=== PATIENT | female | born 1995 | race African-American/Black ===

== ENCOUNTER 2022-07-08 21:09 | Inpatient (IN) ==
[2022-07-08] MEDS ORDERED: OXYTOCIN 30 UNITS/500 ML BAG IV PRN ×2 (22:09)
[2022-07-08] MEDS ORDERED: LIDOCAINE 1% LOCAL 20 ML VIAL INFIL PRN (22:09)
--- NOTE | 2022-07-08 22:18 | History & Physical Report ---
Date of Service July 08, 2022 Assessment & Plan (1) SROM (spontaneous rupture of membranes): Plan: 27 yo G1 at 39 6/7 wga presents w/ SROM VSS Fetus cat 1 SROM - will recheck in few hours to see if making change, will start pit if not GBS neg epidural prn will be out of covid positive window at midnight History of Present Illness Chief Complaint: contractions, LOF Primary Care Provider: NO PCP 27 yo G1 at 39 6/7 wga presents with ctx q5 increasing in freq and intensity as well as a gush of fluid around 5pm. +FM; had some light pink but no bright red VB PNI: ? arrhythmia, ok for delivery here SMA carrier, fob neg ASCUS/HPV+ pap, normal colpo- needs pp pap Past FAMILY CENTER[facility] SPECIALIST Hx: G1 regular cycles hx chlamydia last year pap as above Allergies Allergy/AdvReac Type Severity Reaction Status Date / Time No Known Allergies Allergy Verified 07/07/22 12:21 Home Medications Medication Instructions Recorded Confirmed Type vitamins no.162-iron 1 tab PO DAILY #30 tabs 04/23/22 07/08/22 Rx gluconate 12 mg-folic acid 1 mg tablet Patient History Medical History (Updated 07/08/22 @ 22:17 by Marline Lau MD) Abnormal Pap smear of cervix History of varicella vaccination Hx of chlamydia infection prior to Hx of human papillomavirus infection Hx of ovarian cyst Surgical History No pertinent past surgical history Family History Grandmother (Maternal) Hypertension Denies family history of Ovarian cancer Breast cancer Lung cancer Colorectal cancer Social History (Updated 07/07/22 @ 12:21 by Loren Kathleen, RN) Smoking Status: Never smoker Hx Alcohol Use: No Hx Substance Use: No Preferred Language: Occitan Communication Ability: Effective Visual Impairment: No Limitations Hearing Ability: Normal Emergency Detail Driver Required: No Beliefs That Will Affect Care: None marital status: Single marital status details: NAT Montes Jr. [phone] Current Living Situation: Alone Current Living Situation Comment: 1 dog current occupational status: unemployed current occupation: [employer] Other Information That Helps Us Care for You: No Feels Safe at Home: Yes Safety Concerns: Feels Safe At This Time Assistive Devices: None Physical Exam Genitourinary: OB Exam Abdomen: + vertex (confirmed by bsus) and + estimated weight (7-8) Manual OB Exam: + cervical dilation 2 cm, + cervical effacement 70%, + station -2 and + amniotic fluid (+pooling, nitrazine, ferning) OB Exam Monitor Tracing: + external FHT monitor used, + external uterine monitor used (q5-6) and + category I (125/mod/+accel/-decel) Results & Data ([facility]) Vital Signs (Past 12 Hours) Vital Signs Temp Pulse Resp BP 07/08/22 21:28 98.1 F 83 18 128/72 07/08/22 21:25 98.1 F 83 18 128/72 Laboratory Results OB Labs: Blood Type O Positive 11/29/21 Antibody Screen NEGATIVE 11/29/21 Hemoglobin 10.4 g/dl (12.0-16.0) L 05/01/22 Hematocrit 31.6 % (34.1-44.9) L 05/01/22 Mean Corpuscular Volume 94.8 fL (80.0-100.0) 02/15/22 Platelet Count 232 K/uL (130-400) 02/15/22 Rubella IgG Antibody Immune (Immune) 11/29/21 Rapid Plasma Reagin Nonreactive (Nonreactive) 06/06/22 Hepatitis B Surface Antigen. NON-REACTIVE (NON-REACTIVE) 06/06/22 Hepatitis C Antibody Neg (Neg) 04/14/21 Hepatitis C Antibody (EIA) NON-REACTIVE (NON-REACTIVE) 06/06/22 HIV (1&2) Ab and P24 Ag, 4th Gener Neg (Neg) 04/14/21 HIV (1&2) Ag and Ab Confirmation NON-REACTIVE (NON-REACTIVE) 06/06/22 Glucose 1 Hour 50 gm Load 147 mg/dl (70-130) H 01/24/22 OB Optional Labs: Chlamydia trachomatis RNA Not Detected (NotDetected) 06/06/22 Neisseria gonorrhoeae RNA Not Detected (NotDetected) 06/06/22 Labs Reviewed: cf-negative--mln sma-postive carrier--mln cfdna-low risk--mln 2hrgtt wnl, 2nd trimester GBS neg Diagnostic Findings post plac Coding Level of Care Code None Diagnoses SROM (spontaneous rupture of membranes)
[2022-07-08] MEDS: LACTATED RINGER'S 1,000 ML IV PRN (22:40)
[2022-07-08] MEDS ORDERED: ePHEDrine sulfate 50 MG/ML AMP ONE (22:50)
[2022-07-08] MEDS ORDERED: fentaNYL citrate 100 MCG/2 ML VIAL ONE (22:51)
[2022-07-08] MEDS ORDERED: BUPIVACAINE 0.25% 30 ML VIAL ONE (22:51)
[2022-07-08] MEDS ORDERED: fentaNYL 2MCG/ML ROPIVACAINE 1.25MG/ML 100 ML BAG EPI ONE (22:51)
[2022-07-08] MEDS ORDERED: LIDOCAINE 2%/EPINEPHRINE 1:200,000 20 ML SDV ONE (22:51)
[2022-07-08] MEDS ORDERED: SODIUM CHLORIDE 0.9% INJ 10 ML VIAL ONE (22:51)
[2022-07-08 22:53] LABS: Hematocrit (blood only) 31.9 % (34.1-44.9); Hemoglobin 10.7 g/dl (12.0-16.0); Mean Corpuscular Hemoglobin 30.1 pg (25.0-34.0); Mean Corpuscular Hgb Conc 33.5 g/dL (32.0-36.0); Mean Corpuscular Volume 89.9 fL (80.0-100.0); Mean Platelet Volume 11.2 fL (9.4-12.3); Platelet Count 228 K/uL (130-400); RDW Coefficient of Variation 14.1 % (11.5-14.5); RDW Standard Deviation 46.5 fL (36.4-46.3); Red Blood Count 3.55 M/uL (3.93-5.22); White Blood Count 10.15 K/ul (4.8-10.8)
[2022-07-08] MEDS ORDERED: NALOXONE HCL 1 MG in SODIUM CHLORIDE 0.9% 1000ML 1,000 ML IV PRN (23:24)
[2022-07-08] MEDS ORDERED: NALOXONE HCL 0.4 MG/1 ML VIAL/CARP IV PRN (23:24)
[2022-07-08] MEDS ORDERED: ONDANSETRON INJ 2 MG/ML 2 ML VIAL IV PRN (23:24)
[2022-07-08] MEDS ORDERED: ePHEDrine sulfate 50 MG/ML AMP IV PRN (23:24)
[2022-07-08] MEDS ORDERED: diphenhydrAMINE 50 MG/ML VIAL IV PRN (23:24)
[2022-07-08] MEDS ORDERED: NALBUPHINE HCL INJ 10 MG/ML AMP IV PRN (23:24)
[2022-07-08] MEDS ORDERED: fentaNYL 2MCG/ML ROPIVACAINE 1.25MG/ML 100 ML BAG EPI PRN (23:24)
--- NOTE | 2022-07-08 23:24 | Anesthesiology Consultation ---
Date of Service July 08, 2022 Assessment & Plan ASA ASA2 Proposed Anesthesia Anesthesia Type: Labor Epidural Risk / Benefits Reviewed With: PT / POA / Parent / Guardian, Accepts Plan and Informed Consent Obtained History Height/Weight Height: 5 ft 5 in Weight: 90.718 kg Allergies Allergy/AdvReac Type Severity Reaction Status Date / Time No Known Allergies Allergy Verified 07/07/22 12:21 Medications Home Medications Medication Instructions Recorded Confirmed Last Taken vitamins no.162-iron 1 tab PO DAILY #30 tabs 04/23/22 07/08/22 07/08/22 gluconate 12 mg-folic acid 1 mg tablet Active Medications Generic Name Dose Route Start Last Admin Trade Name Freq PRN Reason Stop Dose Admin Lactated Ringer's 1,000 mls @ 125 mls/hr 07/08/22 22:09 07/09/22 00:09 Lr IV 07/10/22 22:08 125 mls/hr .Q8H PRN Administration L&D Protocol Protocol Past Medical History Medical History Abnormal Pap smear of cervix History of varicella vaccination Hx of chlamydia infection prior to Hx of human papillomavirus infection Hx of ovarian cyst Exercise / Class Metabolic Activity II 4-5 Yardwork/Stairs/Walk up hill Past Family History Family History Grandmother (Maternal) Hypertension Denies family history of Ovarian cancer Breast cancer Lung cancer Colorectal cancer Past Surgical History Surgical History No pertinent past surgical history Past Anesthesia History No Hx of Anesthesia Complications and No Family Hx of Anesthesia Complications History of PONV No Hx of PONV and No Hx of Motion Sickness Social History Smoking Status: Never smoker Hx Alcohol Use: No Hx Substance Use: No substance use type: does not use Review of Systems denies fever/cough/ colds/ chest pain/ SOB/ NELSON denies NELSON Physical Exam Vital Signs Last Vital Signs Temp 36.7 C 07/08/22 21:28 Pulse 82 07/08/22 23:22 Resp 18 07/08/22 21:28 BP 132/80 07/08/22 23:02 Pulse Ox 99 07/08/22 23:22 ENMT Mouth: no TMJ abnormality and no dentition abnormality Thyromental Distance: > or= 3.5 Finger Breadths Mallampati Class: II Neck neck extension not limited Respiratory normal respiratory effort; no respiratory distress Auscultation: lungs clear to auscultation bilaterally Cardiovascular Rate/Rhythm: regular rate and regular rhythm Neurologic moves all extremities Psychiatric Orientation: alert and oriented x 3 Testing Laboratory Results 07/08/22 22:29
[2022-07-09] MEDS: LACTATED RINGER'S 1,000 ML IV PRN (00:09)
--- NOTE | 2022-07-09 05:44 | Delivery Summary ---
Vaginal Delivery Summary Date of Service July 09, 2022 Vaginal Delivery Summary and 2nd Degree LAC PREOPERATIVE DIAGNOSIS: 1. Single intrauterine at 40 wga 2. PROM 3. Mildly tortuous ductal arch POSTOPERATIVE DIAGNOSIS: 1. Single intrauterine at 40 wga 2. PROM 3. Mildly tortuous ductal arch 4. Delivered PROCEDURE: 1. Normal spontaneous vaginal delivery. SURGEON: Marline Lau MD ANESTHESIA: Epidural. ESTIMATED BLOOD LOSS: 400 mL FLUIDS: Continuous LR. URINE OUTPUT: None. COMPLICATIONS: None. CONDITION: Stable. INDICATIONS: 27 yo G1 at 40 wga presented last evening with contractions and LOF and found to have SROM. Initially was 2cm and was started on pitocin due to minimal exchange teller few hours. She received an epidural for pain control and progressed to complete and desired to push. FINDINGS: A viable male infant, weight pending with Apgars of 8 and 9 at 1 and 5 minutes respectively. SPECIMEN: Cord blood, placenta OPERATIVE REPORT: The patient progressed to 10 cm, 100% effaced and +2 station, pushed over intact perineum with anesthesia to deliver a viable male infant, weight and Apgars as above. Head of delivered in BATOOL position. No nuchal cord was present. Body and shoulders were delivered without difficulty. was delivered to maternal abdomen and nursing staff. Delayed cord clamping was performed for 60 seconds. Cord was clamped and cut. Cord blood was obtained. Placenta delivered spontaneously intact with 3-vessel cord. IV oxytocin and fundal massage were given for excellent hemostasis. Vagina, cervix, perineum, and placenta were inspected. A second degree and bilateral labial lacerations were repaired using 3-0 and 4-0 vicryl respectively. There was excellent hemostasis. Sponge and needle counts correct x2. No sponges were left behind. Mother and stable in immediate period. [facility] [place] Vaginal Delivery Charge Vaginal Delivery Codes: 32030 global code for the antepartum, delivery, and post- Delivery Type Details: and 2nd Degree LAC
[2022-07-09] MEDS ORDERED: HYDROCORTISONE ACETATE 25 MG SUPP PR PRN (05:50)
[2022-07-09] MEDS ORDERED: BENZOCAINE 20% AER SPR 82.5 GM CAN EXT PRN (05:50)
[2022-07-09] MEDS ORDERED: OXYTOCIN 30 UNITS/500 ML BAG IV PRN (05:50)
[2022-07-09] MEDS ORDERED: DIPHTHERIA/TETANUS/PERTUSSIS 0.5 ML SYR/VIAL IM ONE (05:50)
--- NOTE | 2022-07-09 07:18 | Anesthesia Procedure Note ---
Date of Service July 09, 2022 Anesthesia Post Epidural Note Vital Signs Vital Signs: Temp Pulse Resp BP Pulse Ox 37.3 C 88 18 137/84 99 07/09/22 05:43 07/09/22 07:13 07/09/22 06:28 07/09/22 07:13 07/09/22 05:35 Notes Mental Status: alert / awake / arousable Nausea / Vomiting: adequately controlled Pain: adequately controlled Airway Patency, RR, SpO2: stable & adequate BP & HR: stable & adequate Hydration State: stable & adequate Neuraxial Anesthesia: was administered and sensory block is resolving Anesthetic Complications: no major complications apparent and Pt Satisfied with anesthetic care Epidural: Removed without complications and With tip intact
[2022-07-09] MEDS: PRENATAL VITAMIN 1 TAB PO SCH (09:53)
[2022-07-09] MEDS: IBUPROFEN 600 MG TAB PO PRN ×2 (09:54→18:15)
[2022-07-09] MEDS: DOCUSATE SODIUM 100 MG CAP PO SCH ×2 (09:54→19:52)
[2022-07-09] MEDS: FERROUS SULFATE 325 MG TAB PO SCH (09:54)
[2022-07-09] MEDS: ACETAMINOPHEN 325 MG TAB PO PRN (23:42)
--- NOTE | 2022-07-10 04:19 | Obstetrical Progress Note ---
Date of Service July 10, 2022 Assessment & Plan (1) care following vaginal delivery: Plan - Overall, feeling well and eating well today - Infant breast feeding, mother requesting consultation - Urinating and passing gas appropriately - Ambulating well in room - Pain controlled w/ Ibuprofen and Tylenol - Hgb 10.7 on 07/08 - Vitals stable and wnl - Routine PP care progressing well - Anticipate discharge tomorrow - Recommending f/u outpatient in 6 weeks Admission and Anticipated Discharge Date Admission Date: July 08, 2022 Supervising Physician Co-Signing Physician Notes Resident Physician Supervision Note: I interviewed and examined the patient. Discussed with Dr. Craven and agree with findings and plan as documented in the note. Any exceptions or clarifications are listed here: Patient desirous of discharge home today, though also appears somewhat anxious about and whether all is going well with her new motherhood, and fatigued s/p COVID. Encouraged her to stay until tomorrow but she would really like d/c today if possible. Medically stable to go home, so w ill reassess her desires in afternoon and if still OK to go can d/c today. Documented By: Kathe Prakash MD, FACOG Subjective Patient is a 27 y/o female who is PPD #1 following delivery at 40w. She reports feeling well overall this morning, but has concerns regarding breast feeding. - Ambulation - well throughout room - Voiding/Govea - independent voids, no dysuria or pressure - Gas/Stool - passing gas, no bowel movement, taking stool softener as she feels constipated - Diet - regular, no nausea or emesis - Lochia - diminishing, moderate amount - Infant Feeding Type - breast feeding, significant concerns that is not eating enough, requesting education from building energy consultant prior to discharge - Pain Level - 6/10, controlled with Ibuprofen and Tylenol Review of Systems - Denies fever, chills, sweats - Denies shortness of breath, difficulty breathing, chest pain, palpitations, chest pressure. - Denies breast pain. Mild uterine cramping with breast feeding. - Denies dysuria. - Denies headache or changes in vision. Physical Exam Physical Exam: General: Alert, oriented. No acute distress. Cardiac: RRR, normal S1/S2, no murmurs/rubs/gallops. Respiratory: Non-labored, CTAB, no wheezes/rales/rhonchi. Symmetric chest rise. Abdomen: Soft, nontender, nondistended. Bowel sounds present. Uterus: Uterine fundus firm, palpable 1 cm below umbilicus. Mild TTP. Lower Extremities: No lower extremity edema or swelling. No deep calf pain. Eri's negative bilaterally. Results & Data ([facility]) Vital Signs (Past 12 Hours) Vital Signs Temp Pulse Resp BP Pulse Ox O2 Del Method 07/09/22 23:30 36.5 C 81 16 124/80 99 Room Air 07/09/22 19:35 36.5 C 80 16 122/76 99 Room Air Resident Activity Tracking Resident Involvement: Resident Care Provided Care Provided: OB Delivery
[2022-07-10] MEDS: ACETAMINOPHEN 325 MG TAB PO PRN ×3 (06:29→23:24)
[2022-07-10 06:43] LABS: Hematocrit (blood only) 29.5 % (34.1-44.9); Hemoglobin 9.8 g/dl (12.0-16.0); Mean Corpuscular Hgb Conc 33.2 g/dL (32.0-36.0); Mean Corpuscular Volume 90.2 fL (80.0-100.0); Mean Platelet Volume 11.1 fL (9.4-12.3); Platelet Count 192 K/uL (130-400); RDW Coefficient of Variation 14.1 % (11.5-14.5); RDW Standard Deviation 46.9 fL (36.4-46.3); Red Blood Count 3.27 M/uL (3.93-5.22); White Blood Count 12.66 K/ul (4.8-10.8)
[2022-07-10] MEDS: PRENATAL VITAMIN 1 TAB PO SCH (07:36)
[2022-07-10] MEDS: FERROUS SULFATE 325 MG TAB PO SCH (07:36)
[2022-07-10] MEDS: DOCUSATE SODIUM 100 MG CAP PO SCH ×2 (07:36→20:30)
[2022-07-10] MEDS: IBUPROFEN 600 MG TAB PO PRN ×2 (07:37→14:12)
[2022-07-10] MEDS ORDERED: bisacodyL 5 MG TABEC PO SCH (20:00)
[2022-07-11] MEDS: IBUPROFEN 600 MG TAB PO PRN ×2 (01:32→08:51)
--- NOTE | 2022-07-11 05:26 | Obstetrical Progress Note ---
Date of Service July 11, 2022 Assessment & Plan (1) care following vaginal delivery: Plan - Overall, feeling well and eating well today - Infant breast feeding w/o concern - Urinating and stooling appropriately - Ambulating well in room - Pain controlled w/ Ibuprofen and Tylenol - Hgb 9.8 on 07/10 - Vitals stable and wnl - Routine PP care progressing well - Anticipate discharge today - Recommending f/u outpatient in 6 weeks Admission and Anticipated Discharge Date Admission Date: July 08, 2022 Supervising Physician Co-Signing Physician Notes Resident Physician Supervision Note: I interviewed and examined the patient. Discussed with Dr. Melvin and agree with findings and plan as documented in the note. Any exceptions or clarifications are listed here: PPD#2 doing well. Desires discharge today - reviewed instructions. Documented By: Kalee Honeycutt, DO Subjective Patient is a 27 y/o female who is PPD #2 following vaginal at 40w. She reports feeling well overall this morning, notes that has improved and she is ready to go home. - Ambulation - well throughout room - Voiding/Govea - independent voids, no dysuria or pressure - Gas/Stool - passing gas, bowel movement this AM, taking stool softener - Diet - regular, no nausea or emesis - Lochia - diminishing, light amount - Feeding Type - breast feeding, much improved, pumping as well - Pain Level - 4/10, controlled with Ibuprofen and Tylenol Review of Systems - Denies fever, chills, sweats - Denies shortness of breath, difficulty breathing, chest pain, palpitations, chest pressure. - Denies breast pain. Mild uterine cramping with breast feeding. - Denies dysuria. - Denies headache or changes in vision. Physical Exam Physical Exam: General: Alert, oriented. No acute distress. Cardiac: RRR, normal S1/S2, no murmurs/rubs/gallops. Respiratory: Non-labored, CTAB, no wheezes/rales/rhonchi. Symmetric chest rise. Abdomen: Soft, nontender, nondistended. Bowel sounds present. Uterus: Uterine fundus firm, palpable 2 cm below umbilicus. Mild TTP. Lower Extremities: No lower extremity edema or swelling. No deep calf pain. Eri's negative bilaterally. Results & Data ([facility]) Vital Signs (Past 12 Hours) Vital Signs Temp Pulse Resp BP Pulse Ox O2 Del Method 07/11/22 00:35 36.5 C 85 16 117/76 99 Room Air 07/10/22 19:35 36.5 C 88 16 129/80 99 Room Air Resident Activity Tracking Resident Involvement: Resident Care Provided Care Provided: OB Delivery
[2022-07-11] MEDS ORDERED: bisacodyL 10 MG SUPP PR PRN (05:50)
[2022-07-11] MEDS: DOCUSATE SODIUM 100 MG CAP PO SCH (08:51)
[2022-07-11] MEDS: PRENATAL VITAMIN 1 TAB PO SCH (08:51)
[2022-07-11] MEDS: FERROUS SULFATE 325 MG TAB PO SCH (08:51)
[2022-07-11] MEDS: ACETAMINOPHEN 325 MG TAB PO PRN (11:20)
== END 2022-07-11 13:40 | disposition home or self-care (01) | DRG 807 ==
LOC: OPB 21:09 → 4S1 21:11 → 4E2 07-09 09:10